=== PATIENT | female | born 1935 | race African-American/Black ===

== ENCOUNTER → 2017-03-25 | Outpatient (CLI) | payer MEDICARE, OTHER | END | disposition home or self-care (01) | LOC: MAMMO 11:08 | PROVIDERS: ATTEND Internal Medicine | DX: Z12.31 Encounter for screening mammogram for malignant neoplasm of breast (principal) | CPT/HCPCS: G0202 ==

== ENCOUNTER 2018-11-30 04:29 | Emergency (ER) | payer MEDICARE, OTHER ==
[~2018-11-30] VITALS: Ht 162.6 cm; Wt 116.0 kg
[2018-11-30 08:41] VITALS: BP 159/93
== END 2018-11-30 09:25 | disposition home or self-care (01) ==
LOC: ER 04:29
DX: R04.0 Epistaxis (principal); I10 Essential (primary) hypertension; Z90.710 Acquired absence of both cervix and uterus
CPT/HCPCS: 99281